=== PATIENT | female | born 1990 | race American Indian/Alaskan Native ===

== ENCOUNTER 2017-03-29 06:48 | Day surgery (SDC) | payer OTHER ==
[2017-03-29] MEDS ORDERED: NACL 0.9% 1000 ML 1,000 ML IV SCH (08:00)
[2017-03-29] MEDS ORDERED: VERSED IV NR (08:00)
[2017-03-29] MEDS ORDERED: PEPCID PO NR (08:00)
--- NOTE | 2017-03-29 08:24 | Short Stay Summary ---
Short Stay Documentation Date of service: 03/29/17 Narrative H&P: Pt is a 26yo BF LMP 07/2013 presents for a LEEP due to Cervical dysplasia ( ASCUS-H) and unable to tolerate in-office procedure. - History Principal diagnosis: Cervical dysplasia Past Medical History: No medical history Past Surgical History: Social history: no significant social history, single - Allergies and Medications Current Medications: Allergies No Known Allergies Allergy (Verified 03/29/17 07:58) Home Medications Medication Instructions Recorded Confirmed Last Taken Type No Known Home Medications [No 03/23/17 03/23/17 Unknown History Reported Home Medications] Active Medications Famotidine (Pepcid) 20 mg PO PREOP NR Stop: 03/29/17 23:00 Sodium Chloride (Nacl 0.9% 1000 Ml) 1,000 mls @ 75 mls/hr IV DIRECT JUJU Midazolam HCl (Versed) 2 mg IV PREOP NR Stop: 03/29/17 23:59 - Physical exam General appearance: no acute distress Integumentary: no rash HEENT: Atraumatic Lungs: Clear to auscultation Breasts: deferred Heart: Regular rate Female Genitourinary: deferred Rectal Exam: deferred Extremities: no ischemia Neurological: Normal gait, Normal speech - Brief post op/procedure progress note Date of procedure: 03/29/17 Pre-op diagnosis: Cervical dysplasia Post-op diagnosis: same Procedure: LEEP Anesthesia: MAC Findings: Grossly normal appearing cervix Surgeon: OCTAVIO CARBAJAL Estimated blood loss: none Pathology: list (Cone shaped cervical biopsy) Specimen disposition: to lab Condition: stable - Hospital course Hospital course: Unremarkable. - Disposition Condition at discharge: Good Disposition: DC-01 TO HOME OR SELFCARE - Discharge Diagnoses (1) Cervical dysplasia Status: Acute Short Stay Discharge Plan Activity: no restrictions Diet: regular Follow up with: PRIMARY CARE, [Primary Care Provider] - 7 Days OCTAVIO CARBAJAL MD [Staff Physician] - 14 Days Prescriptions: HYDROcodone/APAP 5-325 [[place] 5/325] 1 each PO Q6HR PRN #14 tablet PRN Reason: Pain
[2017-03-29] MEDS ORDERED: DILAUDID IV PRN (08:42)
[2017-03-29] MEDS ORDERED: ZOFRAN IV PRN (08:42)
[2017-03-29] MEDS ORDERED: TORADOL IV PRN (08:42)
--- NOTE | 2017-03-29 08:42 | Anesthesia Day of Surgery ---
Anesthesia Day of Surgery - Day of Surgery Patient Examined: Yes Patient H&P Reviewed: Yes Patient is NPO: Yes
[2017-03-29] MEDS ORDERED: NACL BACTERIOSTATIC INFILTRATI ONE (08:45)
--- NOTE | 2017-03-29 08:46 | Anesthesia Consultation ---
Anesthesia Consult and Med Hx Date of service: 03/29/17 - Airway Anesthetic Teeth Evaluation: Good ROM Head & Neck: Adequate Mental/Hyoid Distance: Adequate Mallampati Class: Class II Intubation Access Assessment: Probably Good - Pulmonary Exam CTA: Yes - Cardiac Exam Cardiac Exam: RRR - Pre-Operative Health Status ASA Pre-Surgery Classification: ASA2 Proposed Anesthetic Plan: General - Central Nervous System Hx Psychiatric Problems: No - Other Systems Hx Cancer: No Hx Obesity: Yes (BMI 32.2)
[2017-03-29] MEDS ORDERED: DILAUDID ONE (09:00)
[2017-03-29] MEDS ORDERED: MONSEL'S TP ONE (09:00)
[2017-03-29] MEDS ORDERED: DIPRIVAN 10 MG/ML IV ONE (09:00)
[2017-03-29] MEDS ORDERED: SILVER NITRATE TP ONE (09:00)
[2017-03-29] MEDS ORDERED: XYLOCAINE 1%/ EPI 1:100,000 INFILTRATI ONE ×2 (09:00→09:47)
[2017-03-29] MEDS ORDERED: LUGOL'S SOLUTION 5% TP ONE (09:00)
[2017-03-29] MEDS ORDERED: ANCEF/STERILE WATER 2 GM/20 ML 2 GM/20 ML SYRINGE IV NR (09:00)
[2017-03-29] MEDS ORDERED: XYLOCAINE MPF 2% ONE (09:01)
[2017-03-29] MEDS ORDERED: ACETIC ACID 3% SOLN TP ONE ×2 (09:03→09:46)
[2017-03-29] MEDS ORDERED: NACL 0.9% IR ONE (09:04)
[2017-03-29 09:07] LABS: Hematocrit 43.9 % (30.3-42.9); Hemoglobin 14.5 gm/dl (10.1-14.3)
[2017-03-29] MEDS ORDERED: TORADOL ONE (09:43)
[2017-03-29] MEDS ORDERED: ZOFRAN ONE (09:43)
--- NOTE | 2017-03-29 10:04 | Operative Report ---
Operative Report Operative Report: Date of procedure: 03/29/2017 Pre-operative diagnosis: Cervical dysplasia Post-operative diagnosis: Same Procedure name(s): Loop electrocautery excision procedure Surgeon: Joni Bojorquez MD Surgeon Partner: None Anesthesia: General mask EBL: Less than 10 mL's Findings: Grossly normal-appearing cervix Procedure: After the patient was correctly identified, she was prepped and draped in usual sterile fashion and placed in the dorsolithotomy position. First the bladder was emptied using a straight catheter. Next a speculum was placed in vaginal vault and the anterior lip of the cervix was grasped using a single-tooth tenaculum. A 20 x 15 mm loop was used to perform the excision, and the specimen tagged at 12:00 and sent to pathology. The base of the excision was cauterized using the ball, and excellent hemostasis was achieved. Monsel's solution was placed at the base of the excision, and the procedure was considered complete. All instruments removed from the vagina. The patient tolerated the procedure well and was transported to recovery room in stable condition.
[2017-03-29 10:53] VITALS: BP 99/63
== END 2017-03-29 11:08 | disposition home or self-care (01) ==
LOC: OR 06:48
PROVIDERS: ATTEND Obstetrics & Gynecology
DX: N87.9 Dysplasia of cervix uteri, unspecified (principal); E66.9 Obesity, unspecified; Z68.32 Body mass index [BMI] 32.0-32.9, adult
CPT/HCPCS: 36415; 57522; 81025; 85014; 85018; 88307; 88342; J0690; J1170; J1885; J2250; J2405; J2704; J7030